=== PATIENT | female | born 1990 | race African-American/Black ===

== ENCOUNTER 2019-12-16 09:18 | Inpatient (IN) | payer OTHER ==
[~2019-12-16] VITALS: Ht 167.6 cm; Wt 58.5 kg
[~2019-12-16 09:18] MED LIST: CALC667C4 PO; CINA30 PO; ENAL20TA PO; NIFE30TA94 PO
[2019-12-16 10:11] LABS: BASOPHILS % 1.1 % (0.0-2.0); EOSINOPHILS % 0.2 % (0.0-5.0); HEMOGLOBIN. 10.6 g/dL (12.0-16.0); LYMPHOCYTES % 12.1 % (20.0-50.0); MEAN CORPUSCULAR HEMOGLOBIN 27.4 pg (28.0-32.0); MEAN CORPUSCULAR VOLUME 83.3 fL (81.0-99.0); MEAN PLATELET VOLUME 8.5 fl (7.4-10.4); MONOCYTES % 3.2 % (2.0-8.0); NEUTROPHILS % 83.4 % (40.0-76.0); PLATELET 86 x1000/uL (130-400); RED BLOOD CELL COUNT 3.85 mill/uL (4.2-5.4); RED CELL DISTRIBUTION WIDTH 17.9 % (11.6-14.6)
[2019-12-16 10:17] LABS: CHLORIDE 107 mEq/L (98-107)
[2019-12-16 10:18] LABS: INR 1.1; PROTHROMBIN TIME 11.6 sec (9.6-11.0)
[2019-12-16 10:24] LABS: HCG SCREEN NEGATIVE
[2019-12-16 10:28] LABS: B-HCG QUANTITATIVE < 1.0 mIU/mL (<3)
[2019-12-16] MEDS ORDERED: LACTULOSE 20G/30ML UDC PO ONE (11:15)
[2019-12-16] MEDS ORDERED: ALBUTEROL (0.083%) 2.5MG/3ML NEB HHN ONE (11:15)
[2019-12-16] MEDS ORDERED: SODIUM BICARBONATE 8.4% 1 MEQ/ML 50ML SYR IV ONE (11:15)
[2019-12-16] MEDS ORDERED: INSULIN REGULAR (HUMULIN R) 300UNITS/3ML IV ONE (11:15)
[2019-12-16] MEDS ORDERED: DEXTROSE 50% WATER 50ML SYRINGE IV ONE (11:15)
[2019-12-16 11:19] LABS: PLATELET ESTIMATE DECREASED
[2019-12-16] MEDS ORDERED: ALBUTEROL (0.083%) 2.5MG/3ML NEB ONE (11:26)
[2019-12-16] MEDS ORDERED: ALBUTEROL (0.5%) 2.5MG/0.5ML NEB HHN ONE (11:26)
[2019-12-16 11:58] LABS: CLARITY URINE TURBID (CLEAR); COLOR URINE YELLOW (YELLOW); KETONES URINE NEGATIVE (NEGATIVE); LEUKOCYTE ESTERASE URINE 3+ (NEGATIVE); NITRITE URINE NEGATIVE (NEGATIVE); OCCULT BLOOD URINE 3+ (NEGATIVE); PROTEIN URINE 2+ (NEGATIVE); SPECIFIC GRAVITY URINE 1.011 (1.005-1.030); UROBILINOGEN URINE 0.2 E.U./dL (0.2-1.0)
[2019-12-16] MEDS ORDERED: IPRATROPIUM/ALBUTEROL 0.5-3(2.5)MG/3ML NEB HHN PRN (12:15)
[2019-12-16] MEDS ORDERED: ACETAMINOPHEN 325MG TABLET PO PRN (12:15)
[2019-12-16] MEDS ORDERED: CLONIDINE 0.1MG TABLET PO PRN (12:15)
[2019-12-16] MEDS ORDERED: GUAIFENESIN 200MG/10ML SUGAR FREE UDC PO PRN (12:15)
[2019-12-16] MEDS ORDERED: MORPHINE SULFATE 2 MG/ML CPJ (NOT FOR IM USE) IV PRN (12:15)
[2019-12-16] MEDS ORDERED: SODIUM CHLORIDE 0.9% 500 ML IV ONE (12:26)
[2019-12-16 16:30] VITALS: BP 163/88
[2019-12-16 17:44] VITALS: BP 168/88
[2019-12-16] MEDS ORDERED: CEFTRIAXONE 1 G PREMIX 50 ML IV NR (18:00)
[2019-12-16] MEDS ORDERED: CALCIUM ACETATE 667MG CAPSULE PO SCH (18:00)
[2019-12-16] MEDS: CALCIUM ACETATE 667 MG TABLET PO SCH (18:53)
[2019-12-16] MEDS ORDERED: PNEUMOCOCCAL 23-VAL P-SAC VAC 0.5 ML IM ONE (19:30)
[2019-12-16 20:36] VITALS: BP 167/89
[2019-12-16] MEDS: LACTULOSE 20G/30ML UDC PO SCH (22:58)
[2019-12-17 00:44] VITALS: BP 136/78
[2019-12-17 04:00] VITALS: BP 126/64
[2019-12-17] MEDS: LACTULOSE 20G/30ML UDC PO SCH ×3 (05:44→22:48)
[2019-12-17 07:06] LABS: BASOPHILS % 0.9 % (0.0-2.0); EOSINOPHILS % 1.2 % (0.0-5.0); HEMATOCRIT. 25.5 % (36.0-48.0); HEMOGLOBIN. 8.5 g/dL (12.0-16.0); LYMPHOCYTES % 25.2 % (20.0-50.0); MEAN CORPUSCULAR HEMOGLOBIN 27.5 pg (28.0-32.0); MEAN CORPUSCULAR VOLUME 82.7 fL (81.0-99.0); MEAN PLATELET VOLUME 9.1 fl (7.4-10.4); MONOCYTES % 7.7 % (2.0-8.0); PLATELET 78 x1000/uL (130-400); RED BLOOD CELL COUNT 3.08 mill/uL (4.2-5.4)
[2019-12-17 07:17] LABS: CHLORIDE 107 mEq/L (98-107)
[2019-12-17 07:28] LABS: LDL CHOLESTEROL 85 mg/dL (5-100)
[2019-12-17 07:31] LABS: HDL CHOLESTEROL 64 mg/dL (40-59)
[2019-12-17 08:00] VITALS: BP 132/71
[2019-12-17] MEDS: CALCIUM ACETATE 667 MG TABLET PO SCH ×3 (08:44→17:50)
[2019-12-17] MEDS: ENALAPRIL 5MG TABLET PO SCH (08:46)
[2019-12-17] MEDS: NIFEDIPINE XL 60MG TAB PO SCH (08:46)
[2019-12-17] MEDS: CINACALCET HCL 30MG TABLET PO SCH (08:48)
[2019-12-17] MEDS: CEFTRIAXONE 1 G PREMIX 50 ML IV SCH (10:40)
[2019-12-17] MEDS: ONDANSETRON HCL 4MG/2ML INJ IV PRN ×2 (14:20→21:24)
[2019-12-17 16:00] VITALS: BP 126/67
[2019-12-17 16:59] LABS: PHOSPHORUS 7.1 mg/dL (2.5-4.9)
[2019-12-17 20:00] VITALS: BP 115/59
[2019-12-17] MEDS: DIPHENHYDRAMINE 50MG/ML VIAL IV PRN (21:24)
[2019-12-18] VITALS: BP 105/54
[2019-12-18 04:00] VITALS: BP 98/52
[2019-12-18] MEDS: LACTULOSE 20G/30ML UDC PO SCH ×2 (06:00→14:06)
[2019-12-18 08:20] LABS: BASOPHILS % 0.8 % (0.0-2.0); EOSINOPHILS % 1.3 % (0.0-5.0); HEMOGLOBIN. 9.4 g/dL (12.0-16.0); LYMPHOCYTES % 20.6 % (20.0-50.0); MEAN CORPUSCULAR HEMOGLOBIN 28.2 pg (28.0-32.0); MEAN PLATELET VOLUME 9.5 fl (7.4-10.4); MONOCYTES % 8.2 % (2.0-8.0); NEUTROPHILS % 69.1 % (40.0-76.0); PLATELET 109 x1000/uL (130-400); RED BLOOD CELL COUNT 3.33 mill/uL (4.2-5.4); RED CELL DISTRIBUTION WIDTH 17.9 % (11.6-14.6)
[2019-12-18 08:23] VITALS: BP 92/48
[2019-12-18] MEDS: NIFEDIPINE XL 60MG TAB PO SCH (09:00)
[2019-12-18] MEDS: ENALAPRIL 5MG TABLET PO SCH (09:00)
[2019-12-18] MEDS: CEFTRIAXONE 1 G PREMIX 50 ML IV SCH (09:55)
[2019-12-18] MEDS: CINACALCET HCL 30MG TABLET PO SCH (09:55)
[2019-12-18] MEDS: CALCIUM ACETATE 667 MG TABLET PO SCH ×2 (09:56→14:06)
[2019-12-18] MEDS ORDERED: PSYL575P22 MT (10:54)
[2019-12-18 12:35] VITALS: BP 97/51
[2019-12-18] MEDS: DIPHENHYDRAMINE 50MG/ML VIAL IV PRN (14:14)
[2019-12-18 15:56] VITALS: BP 112/58
[2019-12-18 17:05] VITALS: BP 112/58
== END 2019-12-18 17:45 | disposition home or self-care (01) | DRG 425 ==
LOC: ER 09:39 → 6WST 11:48 → EDBEDREQ 11:57 → EDBEDREQSVC 14:28 → ENRESERV 15:42
PROVIDERS: ADMIT Internal Medicine; ATTEND Internal Medicine
PROC: 5A1D70Z Performance of Urinary Filtration, Intermittent, Less than 6 Hours Per Day (ICD-10-PCS; principal; 2019-12-16)
PROC: 5A1D70Z Performance of Urinary Filtration, Intermittent, Less than 6 Hours Per Day (ICD-10-PCS; 2019-12-16)
DX: E87.5 Hyperkalemia (principal); D69.6 Thrombocytopenia, unspecified; I12.0 Hypertensive chronic kidney disease with stage 5 chronic kidney disease or end stage renal disease; N18.6 End stage renal disease; E83.39 Other disorders of phosphorus metabolism; E83.51 Hypocalcemia; M32.14 Glomerular disease in systemic lupus erythematosus; K72.90 Hepatic failure, unspecified without coma; R18.8 Other ascites; K74.60 Unspecified cirrhosis of liver; N39.0 Urinary tract infection, site not specified; R00.0 Tachycardia, unspecified; Z99.2 Dependence on renal dialysis; Z79.899 Other long term (current) drug therapy; Z68.20 Body mass index [BMI] 20.0-20.9, adult
CPT/HCPCS: 36415; 80048; 80053; 80061; 80076; 81003; 82140; 82248; 82962; 84100; 84443; 84702; 84703; 85025; 87077; 87186; 90732; 93970; 94640; 96372; 96375; 99291; J0696; J1200; J1815; J2270; J2405; J3490; J7030; J7611; J7620

== ENCOUNTER 2020-02-10 09:27 | Emergency (ER) | payer MEDICAID ==
[~2020-02-10] VITALS: Ht 165.1 cm; Wt 52.4 kg
[~2020-02-10 09:27] MED LIST changes: +FERR325T6 MT; +KEPP500 MT; +LACT10SO7 MT; +PSYL575P22 MT
[2020-02-10 10:46] LABS: BASOPHILS % 1.2 % (0.0-2.0); EOSINOPHILS % 2.2 % (0.0-5.0); HEMATOCRIT. 29.6 % (36.0-48.0); HEMOGLOBIN. 9.5 g/dL (12.0-16.0); LYMPHOCYTES % 29.6 % (20.0-50.0); MEAN CORPUSCULAR HEMOGLOBIN 28.2 pg (28.0-32.0); MEAN CORPUSCULAR VOLUME 87.5 fL (81.0-99.0); MEAN PLATELET VOLUME 9.2 fl (7.4-10.4); MONOCYTES % 8.5 % (2.0-8.0); NEUTROPHILS % 58.5 % (40.0-76.0); PLATELET 99 x1000/uL (130-400); RED BLOOD CELL COUNT 3.39 mill/uL (4.2-5.4); RED CELL DISTRIBUTION WIDTH 18.4 % (11.6-14.6)
[2020-02-10 10:48] LABS: INR 1.1; PARTIAL THROMBOPLASTIN TIME 28.5 sec (23.4-31.0)
[2020-02-10 10:54] LABS: HCG SCREEN NEGATIVE
[2020-02-10] MEDS ORDERED: MORPHINE SULFATE 4 MG/ML CPJ (NOT FOR IM USE) IV ONE (12:15)
[2020-02-10] MEDS ORDERED: ONDANSETRON HCL 4MG/2ML INJ IV ONE (12:15)
[2020-02-10 13:45] VITALS: BP 110/60
== END 2020-02-10 13:45 | disposition home or self-care (01) ==
LOC: ER 09:27
DX: R18.8 Other ascites (principal); R06.00 Dyspnea, unspecified; N18.6 End stage renal disease; F12.10 Cannabis abuse, uncomplicated; M32.9 Systemic lupus erythematosus, unspecified; K76.9 Liver disease, unspecified; K21.9 Gastro-esophageal reflux disease without esophagitis; Z99.2 Dependence on renal dialysis
CPT/HCPCS: 36415; 76705; 84703; 85025; 85610; 85730; 96374; 96375; 99284; J2270; J2405

== ENCOUNTER 2020-03-19 18:57 | Emergency (ER) | payer MEDICAID ==
[~2020-03-19] VITALS: Ht 162.6 cm; Wt 56.0 kg
[2020-03-19] MEDS ORDERED: ONDANSETRON HCL 4MG/2ML INJ IV STA (19:48)
[2020-03-19] MEDS ORDERED: MORPHINE SULFATE 4 MG/ML CPJ (NOT FOR IM USE) IV STA (19:48)
[2020-03-19 20:26] LABS: BASOPHILS % 1.1 % (0.0-2.0); EOSINOPHILS % 4.5 % (0.0-5.0); HEMATOCRIT. 31.1 % (36.0-48.0); HEMOGLOBIN. 10.3 g/dL (12.0-16.0); LYMPHOCYTES % 28.6 % (20.0-50.0); MEAN CORPUSCULAR HEMOGLOBIN 28.7 pg (28.0-32.0); MEAN CORPUSCULAR VOLUME 86.8 fL (81.0-99.0); MONOCYTES % 7.8 % (2.0-8.0); RED BLOOD CELL COUNT 3.58 mill/uL (4.2-5.4); RED CELL DISTRIBUTION WIDTH 19.4 % (11.6-14.6)
[2020-03-19 20:30] LABS: CHLORIDE 100 mEq/L (98-107)
[2020-03-19 20:32] LABS: INR 1.1; PROTHROMBIN TIME 11.9 sec (9.6-11.0)
[2020-03-19 20:38] LABS: HCG SCREEN NEGATIVE
[2020-03-19 21:09] LABS: MEAN PLATELET VOLUME 9.2 fl (7.4-10.4); PLATELET 93 x1000/uL (130-400); PLATELET ESTIMATE DECREASED
[2020-03-19] MEDS ORDERED: HYDROCODONE/ACETAMINOPHEN 5/325MG TABLET PO NR (23:15)
[2020-03-19 23:51] VITALS: BP 135/79
== END 2020-03-19 23:54 | disposition home or self-care (01) ==
LOC: ER 18:57
DX: K85.90 Acute pancreatitis without necrosis or infection, unspecified (principal); R51 Headache; Z99.2 Dependence on renal dialysis; K21.9 Gastro-esophageal reflux disease without esophagitis; Z98.890 Other specified postprocedural states; Z79.899 Other long term (current) drug therapy
CPT/HCPCS: 36415; 71045; 80053; 83690; 83880; 84484; 84703; 85025; 85610; 93005; 96374; 96375; 99285; J2270; J2405

== ENCOUNTER 2020-04-03 08:13 | Inpatient (IN) | payer MEDICAID ==
[~2020-04-03] VITALS: Ht 165.1 cm; Wt 59.0 kg
[2020-04-03] MEDS ORDERED: MORPHINE SULFATE 4 MG/ML CPJ (NOT FOR IM USE) IV STA (08:46)
[2020-04-03 09:11] LABS: CHLORIDE 104 mEq/L (98-107)
[2020-04-03] MEDS ORDERED: ONDANSETRON HCL 4MG TABLET PO ONE (09:15)
[2020-04-03 09:29] LABS: HCG SCREEN NEGATIVE
[2020-04-03 10:23] LABS: INR 1.1
[2020-04-03 10:41] LABS: BASOPHILS % 0.6 % (0.0-2.0); EOSINOPHILS % 2.7 % (0.0-5.0); HEMATOCRIT. 30.2 % (36.0-48.0); HEMOGLOBIN. 10.1 g/dL (12.0-16.0); LYMPHOCYTES % 30.1 % (20.0-50.0); MEAN CORPUSCULAR HEMOGLOBIN 28.4 pg (28.0-32.0); MEAN CORPUSCULAR VOLUME 84.9 fL (81.0-99.0); MEAN PLATELET VOLUME 8.6 fl (7.4-10.4); MONOCYTES % 7.7 % (2.0-8.0); NEUTROPHILS % 58.9 % (40.0-76.0); PLATELET 54 x1000/uL (130-400); RED BLOOD CELL COUNT 3.56 mill/uL (4.2-5.4); RED CELL DISTRIBUTION WIDTH 18.5 % (11.6-14.6)
[2020-04-03] MEDS ORDERED: ALBUTEROL (0.083%) 2.5MG/3ML NEB HHN SCH (10:49)
[2020-04-03] MEDS ORDERED: ALBUTEROL (0.083%) 2.5MG/3ML NEB HHN ONE (11:15)
[2020-04-03] MEDS ORDERED: INSULIN REGULAR (HUMULIN R) 300UNITS/3ML IV ONE (11:15)
[2020-04-03] MEDS ORDERED: DEXTROSE 50% WATER 50ML SYRINGE IV ONE (11:15)
[2020-04-03] MEDS ORDERED: SODIUM BICARBONATE 8.4% 1 MEQ/ML 50ML SYR IV ONE (11:15)
[2020-04-03] MEDS ORDERED: ACETAMINOPHEN 325MG TABLET PO PRN (13:00)
[2020-04-03] MEDS: ONDANSETRON HCL 4MG/2ML INJ IV PRN ×2 (15:24→17:51)
[2020-04-03] MEDS: MORPHINE SULFATE 2 MG/ML CPJ (NOT FOR IM USE) IV PRN (17:51)
[2020-04-03] MEDS: LEVETIRACETAM 500MG TABLET PO SCH (21:13)
[2020-04-03 22:00] VITALS: BP 141/73
[2020-04-03] MEDS ORDERED: IOHEXOL-300 100 ML BOTTLE ONE (23:17)
[2020-04-04] MEDS: MORPHINE SULFATE 2 MG/ML CPJ (NOT FOR IM USE) IV PRN (02:07)
[2020-04-04] MEDS: ONDANSETRON HCL 4MG/2ML INJ IV PRN ×3 (02:21→17:55)
[2020-04-04] MEDS ORDERED: DIPH25CA83 PO (04:17)
[2020-04-04 06:54] LABS: BASOPHILS % 0.5 % (0.0-2.0); EOSINOPHILS % 3.2 % (0.0-5.0); HEMATOCRIT. 31.8 % (36.0-48.0); HEMOGLOBIN. 10.5 g/dL (12.0-16.0); LYMPHOCYTES % 28.6 % (20.0-50.0); MEAN CORPUSCULAR HEMOGLOBIN 28.6 pg (28.0-32.0); MEAN CORPUSCULAR VOLUME 86.8 fL (81.0-99.0); MONOCYTES % 6.7 % (2.0-8.0); RED BLOOD CELL COUNT 3.66 mill/uL (4.2-5.4)
[2020-04-04 08:00] VITALS: BP 128/63
[2020-04-04] MEDS: LEVETIRACETAM 500MG TABLET PO SCH ×2 (08:18→21:01)
[2020-04-04 08:30] VITALS: BP 128/63
[2020-04-04] MEDS: OMEPRAZOLE 20MG CAPSULE EXTENDED RELEASE PO SCH (08:39)
[2020-04-04 08:55] LABS: PLATELET 64 x1000/uL (130-400)
[2020-04-04] MEDS ORDERED: LORAZEPAM 2MG/ML CPJ IV PRN (09:15)
[2020-04-04] MEDS ORDERED: LEVOFLOXACIN 500MG PREMIX 100 ML IV SCH ×2 (10:45→12:00)
[2020-04-04 12:00] VITALS: BP 128/65
[2020-04-04 16:00] VITALS: BP 153/85
[2020-04-04 17:33] VITALS: BP 133/87
[2020-04-04 20:00] VITALS: BP 116/59
[2020-04-04] MEDS: BLOOD SUGAR DIAGNOSTIC STRIP TEST SCH (20:47)
[2020-04-05] VITALS: BP 126/59
[2020-04-05] MEDS: ONDANSETRON HCL 4MG/2ML INJ IV PRN ×2 (00:38→12:28)
[2020-04-05 04:00] VITALS: BP 114/59
[2020-04-05] MEDS: BLOOD SUGAR DIAGNOSTIC STRIP TEST SCH ×3 (06:36→16:45)
[2020-04-05] MEDS: OMEPRAZOLE 20MG CAPSULE EXTENDED RELEASE PO SCH (06:36)
[2020-04-05 06:50] LABS: HEMATOCRIT. 29.8 % (36.0-48.0); HEMOGLOBIN. 10.1 g/dL (12.0-16.0); MEAN CORPUSCULAR HEMOGLOBIN 28.6 pg (28.0-32.0); MEAN CORPUSCULAR VOLUME 84.4 fL (81.0-99.0); MEAN PLATELET VOLUME 8.5 fl (7.4-10.4); PLATELET 59 x1000/uL (130-400); RED BLOOD CELL COUNT 3.53 mill/uL (4.2-5.4); RED CELL DISTRIBUTION WIDTH 18.2 % (11.6-14.6)
[2020-04-05 08:00] VITALS: BP 126/70
[2020-04-05 09:37] LABS: PLATELET ESTIMATE DECREASED
[2020-04-05] MEDS: LEVETIRACETAM 500MG TABLET PO SCH (09:41)
[2020-04-05 12:00] VITALS: BP 130/66
[2020-04-05] MEDS ORDERED: OMEP20CA14 PO (12:10)
[2020-04-05] MEDS ORDERED: KEPP500 MT (12:10)
[2020-04-05] MEDS ORDERED: LACT10SO7 MT (12:10)
[2020-04-05] MEDS ORDERED: LEVO500T2 MT (12:10)
[2020-04-05] MEDS ORDERED: FERR325T6 MT (12:10)
[2020-04-05] MEDS ORDERED: LACTULOSE 20G/30ML UDC PO SCH (14:00)
[2020-04-05 15:08] VITALS: BP 130/66
[2020-04-05 16:00] VITALS: BP 135/76
[2020-04-06] MEDS ORDERED: LEVOFLOXACIN 250MG PREMIX 50 ML IV SCH (11:00)
== END 2020-04-05 16:57 | disposition home or self-care (01) | DRG 243 ==
LOC: ER 08:13 → 5WST 11:41 → ENRESERV 20:21
PROVIDERS: ADMIT Internal Medicine; ATTEND Internal Medicine
PROC: 5A1D70Z Performance of Urinary Filtration, Intermittent, Less than 6 Hours Per Day (ICD-10-PCS; principal; 2020-04-03)
PROC: 5A1D70Z Performance of Urinary Filtration, Intermittent, Less than 6 Hours Per Day (ICD-10-PCS; 2020-04-04)
PROC: 5A1D70Z Performance of Urinary Filtration, Intermittent, Less than 6 Hours Per Day (ICD-10-PCS; 2020-04-05)
DX: K21.9 Gastro-esophageal reflux disease without esophagitis (principal); E43 Unspecified severe protein-calorie malnutrition; I12.0 Hypertensive chronic kidney disease with stage 5 chronic kidney disease or end stage renal disease; E87.5 Hyperkalemia; R18.8 Other ascites; N18.6 End stage renal disease; K86.1 Other chronic pancreatitis; E87.1 Hypo-osmolality and hyponatremia; K74.60 Unspecified cirrhosis of liver; Z94.0 Kidney transplant status; D63.8 Anemia in other chronic diseases classified elsewhere; E16.2 Hypoglycemia, unspecified; G40.909 Epilepsy, unspecified, not intractable, without status epilepticus; R19.7 Diarrhea, unspecified; E21.3 Hyperparathyroidism, unspecified; Z99.2 Dependence on renal dialysis; Z79.899 Other long term (current) drug therapy; Z68.21 Body mass index [BMI] 21.0-21.9, adult
CPT/HCPCS: 36415; 74177; 76705; 80048; 80053; 82140; 82542; 82962; 84145; 84703; 85025; 95816; 99291; J1815; J1956; J2060; J2270; J2405; J3490; Q0162; Q9967

== ENCOUNTER 2020-04-29 17:16 | Inpatient (IN) | payer MEDICAID ==
[~2020-04-29] VITALS: Ht 165.1 cm; Wt 59.0 kg
[~2020-04-29 17:16] MED LIST changes: +DIPH25CA83 PO; -ENAL20TA PO; +LEVO500T2 MT; -NIFE30TA94 PO; +OMEP20CA14 PO; -PSYL575P22 MT
[2020-04-29 18:56] LABS: CHLORIDE 103 mEq/L (98-107)
[2020-04-29 19:07] LABS: HEMATOCRIT. 27.4 % (36.0-48.0); HEMOGLOBIN. 9.3 g/dL (12.0-16.0); MEAN CORPUSCULAR HEMOGLOBIN 28.7 pg (28.0-32.0); MEAN CORPUSCULAR VOLUME 85.2 fL (81.0-99.0); MEAN PLATELET VOLUME 9.1 fl (7.4-10.4); PLATELET 58 x1000/uL (130-400); RED BLOOD CELL COUNT 3.22 mill/uL (4.2-5.4); RED CELL DISTRIBUTION WIDTH 17.3 % (11.6-14.6)
[2020-04-29] MEDS ORDERED: MORPHINE SULFATE 2 MG/ML CPJ (NOT FOR IM USE) IV ONE (19:30)
[2020-04-29 20:47] LABS: PLATELET ESTIMATE MARKEDLY DECREASED
[2020-04-30 00:25] VITALS: BP 146/81
[2020-04-30 01:00] VITALS: BP 146/81
[2020-04-30] MEDS ORDERED: DIPHENHYDRAMINE 50MG/ML VIAL IV PRN (01:45)
[2020-04-30] MEDS: MORPHINE SULFATE 2 MG/ML CPJ (NOT FOR IM USE) IV PRN ×3 (04:12→18:41)
[2020-04-30] MEDS: OMEPRAZOLE 20MG CAPSULE EXTENDED RELEASE PO SCH (07:21)
[2020-04-30 07:34] LABS: HEMATOCRIT. 25.1 % (36.0-48.0); HEMOGLOBIN. 8.5 g/dL (12.0-16.0); MEAN CORPUSCULAR HEMOGLOBIN 29.1 pg (28.0-32.0); MEAN CORPUSCULAR VOLUME 86.1 fL (81.0-99.0); MEAN PLATELET VOLUME 9.1 fl (7.4-10.4); PLATELET 55 x1000/uL (130-400); RED BLOOD CELL COUNT 2.92 mill/uL (4.2-5.4); RED CELL DISTRIBUTION WIDTH 17.7 % (11.6-14.6)
[2020-04-30 08:00] VITALS: BP 147/80
[2020-04-30] MEDS: LEVETIRACETAM 500MG TABLET PO SCH ×2 (08:46→20:32)
[2020-04-30] MEDS: FERROUS SULFATE 325MG TABLET PO SCH ×2 (08:46→17:33)
[2020-04-30] MEDS: METOPROLOL TARTRATE 25MG TABLET PO SCH ×2 (08:46→20:32)
[2020-04-30] MEDS: CALCIUM ACETATE 667MG CAPSULE PO SCH ×3 (08:47→17:33)
[2020-04-30] MEDS: LACTULOSE 20G/30ML UDC PO SCH (08:47)
[2020-04-30 10:44] LABS: PLATELET ESTIMATE MARKEDLY DECREASED
[2020-04-30 12:00] VITALS: BP 119/72
[2020-04-30] MEDS: ONDANSETRON HCL 4MG/2ML INJ IV PRN ×2 (12:58→18:41)
[2020-04-30 16:00] VITALS: BP 124/76
[2020-04-30 20:00] VITALS: BP 139/56
[2020-05-01] VITALS (8 sets, daily range): BP systolic 100–134; BP diastolic 58–78
[2020-05-01] MEDS: ONDANSETRON HCL 4MG/2ML INJ IV PRN (02:36)
[2020-05-01] MEDS: MORPHINE SULFATE 2 MG/ML CPJ (NOT FOR IM USE) IV PRN ×2 (02:36→11:52)
[2020-05-01 06:11] LABS: HEMATOCRIT. 24.8 % (36.0-48.0); HEMOGLOBIN. 8.4 g/dL (12.0-16.0); MEAN CORPUSCULAR HEMOGLOBIN 28.7 pg (28.0-32.0); MEAN CORPUSCULAR VOLUME 84.6 fL (81.0-99.0); MEAN PLATELET VOLUME 9.1 fl (7.4-10.4); RED BLOOD CELL COUNT 2.93 mill/uL (4.2-5.4); RED CELL DISTRIBUTION WIDTH 17.3 % (11.6-14.6)
[2020-05-01 06:15] LABS: INR 1.1; PARTIAL THROMBOPLASTIN TIME 34.5 sec (23.4-31.0); PROTHROMBIN TIME 12.3 sec (9.6-11.0)
[2020-05-01 06:44] LABS: PLATELET 46 x1000/uL (130-400)
[2020-05-01] MEDS: OMEPRAZOLE 20MG CAPSULE EXTENDED RELEASE PO SCH (06:47)
[2020-05-01] MEDS: LACTULOSE 20G/30ML UDC PO SCH (08:39)
[2020-05-01] MEDS: FERROUS SULFATE 325MG TABLET PO SCH ×2 (08:39→17:07)
[2020-05-01] MEDS: LEVETIRACETAM 500MG TABLET PO SCH ×2 (08:39→21:00)
[2020-05-01] MEDS: CALCIUM ACETATE 667MG CAPSULE PO SCH ×3 (08:50→17:07)
[2020-05-01] MEDS: METOPROLOL TARTRATE 25MG TABLET PO SCH ×2 (09:00→21:00)
[2020-05-01] MEDS ORDERED: SODIUM POLYSTYRENE SULFONATE 15 G/60 ML BOT PO NR (10:15)
[2020-05-01 12:02] LABS: PLATELET ESTIMATE MARKEDLY DECREASED
[2020-05-01] MEDS ORDERED: LACT10SO7 MT (14:21)
[2020-05-01] MEDS ORDERED: ACETAMINOPHEN 650MG/20.3ML UDC PO PRN (20:45)
[2020-05-01] MEDS ORDERED: VANCOMYCIN 1250MG in DEXTROSE 5% WATER 250ML IV NR (22:00)
[2020-05-01 22:08] LABS: HEMATOCRIT. 26.4 % (36.0-48.0); HEMOGLOBIN. 8.9 g/dL (12.0-16.0); MEAN CORPUSCULAR HEMOGLOBIN 28.7 pg (28.0-32.0); MEAN CORPUSCULAR VOLUME 84.8 fL (81.0-99.0); MEAN PLATELET VOLUME 9.8 fl (7.4-10.4); PLATELET 69 x1000/uL (130-400); RED BLOOD CELL COUNT 3.11 mill/uL (4.2-5.4); RED CELL DISTRIBUTION WIDTH 17.1 % (11.6-14.6)
[2020-05-01 23:07] LABS: PLATELET ESTIMATE DECREASED
[2020-05-02] VITALS: BP 118/77
[2020-05-02 00:15] VITALS: BP 107/71
[2020-05-02] MEDS: MORPHINE SULFATE 2 MG/ML CPJ (NOT FOR IM USE) IV PRN ×3 (00:46→22:12)
[2020-05-02 04:00] VITALS: BP 124/75
[2020-05-02] MEDS: OMEPRAZOLE 20MG CAPSULE EXTENDED RELEASE PO SCH (06:35)
[2020-05-02 07:50] VITALS: BP 98/51
[2020-05-02 07:54] LABS: HEMATOCRIT. 25.8 % (36.0-48.0); HEMOGLOBIN. 8.6 g/dL (12.0-16.0); MEAN CORPUSCULAR HEMOGLOBIN 28.4 pg (28.0-32.0); MEAN CORPUSCULAR VOLUME 84.8 fL (81.0-99.0); RED BLOOD CELL COUNT 3.05 mill/uL (4.2-5.4); RED CELL DISTRIBUTION WIDTH 17.1 % (11.6-14.6)
[2020-05-02] MEDS: LEVETIRACETAM 500MG TABLET PO SCH ×2 (08:05→20:25)
[2020-05-02] MEDS: CALCIUM ACETATE 667MG CAPSULE PO SCH ×3 (08:05→17:28)
[2020-05-02] MEDS: FERROUS SULFATE 325MG TABLET PO SCH ×2 (08:06→17:27)
[2020-05-02] MEDS: LACTULOSE 20G/30ML UDC PO SCH (08:06)
[2020-05-02] MEDS: METOPROLOL TARTRATE 25MG TABLET PO SCH ×2 (08:06→20:25)
[2020-05-02 10:10] LABS: PLATELET 56 x1000/uL (130-400)
[2020-05-02 10:18] LABS: PLATELET ESTIMATE DECREASED
[2020-05-02 12:00] VITALS: BP 128/74
[2020-05-02] MEDS ORDERED: SODIUM BICARBONATE 4% (2.4MEQ) 5ML VIAL IV ONE (12:45)
[2020-05-02] MEDS ORDERED: LIDOCAINE HCL 1% 20ML VIAL (Pyxis) INJ ONE (12:45)
[2020-05-02] MEDS ORDERED: PIPERACILLIN/TAZOBACTAM 3.375 G/VIAL IV SCH (14:00)
[2020-05-02] MEDS ORDERED: PIPERACILLIN/TAZOBACTAM 2.25 G in DEXTROSE 5% WATER 50 ML IV SCH (15:00)
[2020-05-02] MEDS: CEFEPIME 1,000 MG in DEXTROSE 5% WATER 50 ML IV SCH (17:25)
[2020-05-02 20:00] VITALS: BP 124/76
[2020-05-03] VITALS: BP 121/75
[2020-05-03 04:20] VITALS: BP 122/66
[2020-05-03] MEDS: MORPHINE SULFATE 2 MG/ML CPJ (NOT FOR IM USE) IV PRN (05:10)
[2020-05-03] MEDS: OMEPRAZOLE 20MG CAPSULE EXTENDED RELEASE PO SCH (06:25)
[2020-05-03 07:18] LABS: HEMATOCRIT. 25.1 % (36.0-48.0); HEMOGLOBIN. 8.5 g/dL (12.0-16.0); MEAN CORPUSCULAR HEMOGLOBIN 28.5 pg (28.0-32.0); MEAN CORPUSCULAR VOLUME 84.5 fL (81.0-99.0); RED BLOOD CELL COUNT 2.97 mill/uL (4.2-5.4); RED CELL DISTRIBUTION WIDTH 16.6 % (11.6-14.6)
[2020-05-03 08:00] VITALS: BP 118/74
[2020-05-03 09:57] LABS: PLATELET 58 x1000/uL (130-400)
[2020-05-03 10:06] LABS: PLATELET ESTIMATE MARKEDLY DECREASED
[2020-05-03] MEDS: METOPROLOL TARTRATE 25MG TABLET PO SCH (10:21)
[2020-05-03] MEDS: FERROUS SULFATE 325MG TABLET PO SCH (11:56)
[2020-05-03] MEDS: CALCIUM ACETATE 667MG CAPSULE PO SCH ×2 (11:56→13:32)
[2020-05-03] MEDS: LEVETIRACETAM 500MG TABLET PO SCH (11:57)
[2020-05-03] MEDS: LACTULOSE 20G/30ML UDC PO SCH (11:57)
[2020-05-03] MEDS: ONDANSETRON HCL 4MG/2ML INJ IV PRN (11:59)
[2020-05-03 12:00] VITALS: BP 121/67
[2020-05-03] MEDS: CEFEPIME 1,000 MG in DEXTROSE 5% WATER 50 ML IV SCH (16:00)
[2020-05-03 17:18] VITALS: BP 138/58
[2020-05-05] MEDS ORDERED: ERGOCALCIFEROL 50000UNITS CAPSULE PO SCH (18:00)
== END 2020-05-03 19:05 | disposition home or self-care (01) | DRG 720 ==
LOC: ER 17:16 → 6WST 21:51 → MICUSO 21:51 → UNDOADMIN 21:51
PROVIDERS: ADMIT Internal Medicine; ATTEND Internal Medicine
PROC: 5A1D70Z Performance of Urinary Filtration, Intermittent, Less than 6 Hours Per Day (ICD-10-PCS; 2020-04-30)
PROC: 5A1D70Z Performance of Urinary Filtration, Intermittent, Less than 6 Hours Per Day (ICD-10-PCS; 2020-05-01)
PROC: 30233R1 Transfusion of Nonautologous Platelets into Peripheral Vein, Percutaneous Approach (ICD-10-PCS; 2020-05-01)
PROC: 0W9G3ZZ Drainage of Peritoneal Cavity, Percutaneous Approach (ICD-10-PCS; principal; 2020-05-02)
PROC: 5A1D70Z Performance of Urinary Filtration, Intermittent, Less than 6 Hours Per Day (ICD-10-PCS; 2020-05-03)
DX: A41.9 Sepsis, unspecified organism (principal); E43 Unspecified severe protein-calorie malnutrition; D61.818 Other pancytopenia; E87.2 Acidosis; M32.9 Systemic lupus erythematosus, unspecified; I12.0 Hypertensive chronic kidney disease with stage 5 chronic kidney disease or end stage renal disease; E87.5 Hyperkalemia; R18.8 Other ascites; K74.60 Unspecified cirrhosis of liver; N18.6 End stage renal disease; G40.909 Epilepsy, unspecified, not intractable, without status epilepticus; Z99.2 Dependence on renal dialysis; Z68.26 Body mass index [BMI] 26.0-26.9, adult; Z79.2 Long term (current) use of antibiotics; Z79.899 Other long term (current) drug therapy
CPT/HCPCS: 36415; 49083; 71045; 76700; 80048; 80053; 80202; 84145; 84484; 85025; 86850; 86900; 93005; 96374; 99285; J0692; J2270; J2405; J2543; J3370; J3490; J7060; P9034

== ENCOUNTER 2020-06-05 04:53 | Inpatient (IN) | payer MEDICAID, OTHER ==
[~2020-06-05] VITALS: Ht 162.6 cm; Wt 59.0 kg
[~2020-06-05 04:53] MED LIST changes: -CINA30 PO; -LEVO500T2 MT
[2020-06-05 06:15] LABS: CHLORIDE 100 mEq/L (98-107)
[2020-06-05] MEDS ORDERED: MORPHINE SULFATE 4 MG/ML CPJ (NOT FOR IM USE) IV ONE (06:15)
[2020-06-05 06:17] LABS: HEMATOCRIT. 27.3 % (36.0-48.0); HEMOGLOBIN. 9.3 g/dL (12.0-16.0); MEAN CORPUSCULAR HEMOGLOBIN 28.8 pg (28.0-32.0); MEAN CORPUSCULAR VOLUME 84.4 fL (81.0-99.0); MEAN PLATELET VOLUME 9.1 fl (7.4-10.4); PLATELET 72 x1000/uL (130-400); RED BLOOD CELL COUNT 3.24 mill/uL (4.2-5.4); RED CELL DISTRIBUTION WIDTH 18.8 % (11.6-14.6)
[2020-06-05 06:19] LABS: ETHANOL BLOOD < 10 mg/dL
[2020-06-05] MEDS ORDERED: ONDANSETRON HCL 4MG/2ML INJ ONE (06:56)
[2020-06-05] MEDS ORDERED: ONDANSETRON HCL 4MG/2ML INJ IV ONE (07:00)
[2020-06-05 07:08] LABS: PLATELET ESTIMATE DECREASED
[2020-06-05] MEDS: MORPHINE SULFATE 2 MG/ML CPJ (NOT FOR IM USE) IV PRN ×2 (12:21→22:20)
[2020-06-05] MEDS ORDERED: ACETAMINOPHEN 325MG TABLET PO PRN (12:45)
[2020-06-05] MEDS ORDERED: CEFEPIME 1,000 MG in DEXTROSE 5% WATER 50 ML IV SCH (14:00)
[2020-06-05] MEDS: METHYLPREDNISOLONE SOD SUCC 40 MG/ML VIAL IV SCH ×2 (14:39→22:19)
[2020-06-05] MEDS: LACTULOSE 20G/30ML UDC PO SCH (22:19)
[2020-06-05 23:03] VITALS: BP 129/67
[2020-06-05] MEDS ORDERED: LACT10SO7 MT (23:55)
[2020-06-05] MEDS ORDERED: VITAMIN D PO (23:57)
[2020-06-06 00:07] VITALS: BP 117/61
[2020-06-06 04:00] VITALS: BP 108/57
[2020-06-06] MEDS: METHYLPREDNISOLONE SOD SUCC 40 MG/ML VIAL IV SCH ×3 (06:04→22:08)
[2020-06-06 06:46] LABS: HEMATOCRIT. 28.1 % (36.0-48.0); HEMOGLOBIN. 9.5 g/dL (12.0-16.0); MEAN CORPUSCULAR HEMOGLOBIN 28.9 pg (28.0-32.0); MEAN CORPUSCULAR VOLUME 85.2 fL (81.0-99.0); RED CELL DISTRIBUTION WIDTH 18.4 % (11.6-14.6)
[2020-06-06 08:00] VITALS: BP 127/64
[2020-06-06] MEDS: LACTULOSE 20G/30ML UDC PO SCH ×3 (09:00→17:28)
[2020-06-06] MEDS ORDERED: LACTULOSE 20G/30ML UDC PO SCH (09:00)
[2020-06-06] MEDS: MORPHINE SULFATE 2 MG/ML CPJ (NOT FOR IM USE) IV PRN ×2 (11:39→22:21)
[2020-06-06 12:12] VITALS: BP 107/45
[2020-06-06 14:08] LABS: MEAN PLATELET VOLUME 8.9 fl (7.4-10.4); PLATELET 62 x1000/uL (130-400); PLATELET ESTIMATE DECREASED
[2020-06-06] MEDS ORDERED: LACT10SO7 MT (14:24)
[2020-06-06] MEDS ORDERED: HYDROCODONE/ACETAMINOPHEN 5/325MG TABLET PO PRN (14:30)
[2020-06-06] MEDS: CEFEPIME 1,000 MG in DEXTROSE 5% WATER 50 ML IV SCH (14:35)
[2020-06-06 16:09] VITALS: BP 119/53
[2020-06-06] MEDS: ONDANSETRON HCL 4MG/2ML INJ IV PRN ×2 (16:24→22:19)
[2020-06-06 20:54] VITALS: BP 122/75
[2020-06-06] MEDS: LEVETIRACETAM 500MG TABLET PO SCH (22:08)
[2020-06-07 00:36] VITALS: BP 113/63
[2020-06-07 04:00] VITALS: BP 108/63
[2020-06-07] MEDS: METHYLPREDNISOLONE SOD SUCC 40 MG/ML VIAL IV SCH ×2 (05:56→14:18)
[2020-06-07 06:50] LABS: HEMATOCRIT. 27.6 % (36.0-48.0); HEMOGLOBIN. 9.4 g/dL (12.0-16.0); MEAN CORPUSCULAR HEMOGLOBIN 28.6 pg (28.0-32.0); MEAN CORPUSCULAR VOLUME 83.9 fL (81.0-99.0); RED BLOOD CELL COUNT 3.29 mill/uL (4.2-5.4); RED CELL DISTRIBUTION WIDTH 18.4 % (11.6-14.6)
[2020-06-07 08:09] VITALS: BP 113/64
[2020-06-07] MEDS: LEVETIRACETAM 500MG TABLET PO SCH (08:30)
[2020-06-07] MEDS: LACTULOSE 20G/30ML UDC PO SCH ×5 (08:30→17:13)
[2020-06-07] MEDS: ONDANSETRON HCL 4MG/2ML INJ IV PRN (09:12)
[2020-06-07] MEDS: MORPHINE SULFATE 2 MG/ML CPJ (NOT FOR IM USE) IV PRN (09:13)
[2020-06-07 10:30] LABS: PLATELET 68 x1000/uL (130-400)
[2020-06-07 10:33] LABS: PLATELET ESTIMATE DECREASED
[2020-06-07] MEDS ORDERED: P20 MT (13:02)
[2020-06-07] MEDS ORDERED: LACT10SO MT (13:02)
[2020-06-07] MEDS: CEFEPIME 1,000 MG in DEXTROSE 5% WATER 50 ML IV SCH ×2 (14:00→14:10)
[2020-06-07 15:21] VITALS: BP 103/62
[2020-06-07 15:54] VITALS: BP 112/65
== END 2020-06-07 17:45 | disposition home or self-care (01) | DRG 346 ==
LOC: ER 04:53 → 6WST 08:57 → ENRESERV 20:48
PROVIDERS: ADMIT Internal Medicine; ATTEND Internal Medicine
DX: M32.9 Systemic lupus erythematosus, unspecified (principal); E43 Unspecified severe protein-calorie malnutrition; K85.90 Acute pancreatitis without necrosis or infection, unspecified; D69.6 Thrombocytopenia, unspecified; I13.11 Hypertensive heart and chronic kidney disease without heart failure, with stage 5 chronic kidney disease, or end stage renal disease; I27.20 Pulmonary hypertension, unspecified; K72.90 Hepatic failure, unspecified without coma; K74.60 Unspecified cirrhosis of liver; N18.6 End stage renal disease; D64.9 Anemia, unspecified; Z99.2 Dependence on renal dialysis; Z68.22 Body mass index [BMI] 22.0-22.9, adult
CPT/HCPCS: 36415; 71045; 80048; 80053; 80320; 82140; 83605; 83880; 84145; 84484; 85025; 93005; 96374; 99285; J0692; J2270; J2405; J2920; J7060; G0480

== ENCOUNTER 2020-07-19 07:49 | Inpatient (IN) | payer MEDICAID, OTHER ==
[~2020-07-19] VITALS: Ht 162.6 cm; Wt 59.9 kg
[~2020-07-19 07:49] MED LIST changes: +LACT10SO MT; +P20 MT; +VITAMIN D PO
[2020-07-19] MEDS ORDERED: KETOROLAC 30MG/ML VIAL IV STA (08:43)
[2020-07-19 09:09] LABS: BASOPHILS % 2.9 % (0.0-2.0); EOSINOPHILS % 1.4 % (0.0-5.0); HEMOGLOBIN. 9.9 g/dL (12.0-16.0); LYMPHOCYTES % 24.2 % (20.0-50.0); MEAN CORPUSCULAR HEMOGLOBIN 28.9 pg (28.0-32.0); MONOCYTES % 7.4 % (2.0-8.0); NEUTROPHILS % 64.1 % (40.0-76.0); RED BLOOD CELL COUNT 3.44 mill/uL (4.2-5.4); RED CELL DISTRIBUTION WIDTH 19.7 % (11.6-14.6)
[2020-07-19 09:14] LABS: CHLORIDE 103 mEq/L (98-107)
[2020-07-19 09:16] LABS: INR 1.1
[2020-07-19 09:17] LABS: HCG SCREEN NEGATIVE
[2020-07-19 09:52] LABS: MEAN PLATELET VOLUME 8.9 fl (7.4-10.4); PLATELET 67 x1000/uL (130-400)
[2020-07-19] MEDS ORDERED: ONDANSETRON HCL 4MG/2ML INJ IV STA (11:32)
[2020-07-19] MEDS ORDERED: MORPHINE SULFATE 4 MG/ML CPJ (NOT FOR IM USE) IV STA (11:32)
[2020-07-19] MEDS ORDERED: DIPHENHYDRAMINE 50MG/ML VIAL IV PRN (15:45)
[2020-07-19] MEDS ORDERED: CLONIDINE 0.1MG TABLET PO PRN (15:45)
[2020-07-19] MEDS ORDERED: ONDANSETRON HCL 4MG/2ML INJ IV PRN (15:45)
[2020-07-19] MEDS: MORPHINE SULFATE 2 MG/ML CPJ (NOT FOR IM USE) IV PRN (16:02)
[2020-07-19 16:05] LABS: PHOSPHORUS 6.5 mg/dL (2.5-4.9)
[2020-07-19 17:14] VITALS: BP 119/76
[2020-07-19] MEDS ORDERED: LORAZEPAM 2MG/ML CPJ IV PRN (17:30)
[2020-07-19 20:00] VITALS: BP 137/74
[2020-07-19] MEDS: LEVETIRACETAM 500MG TABLET PO SCH (21:22)
[2020-07-20] VITALS: BP 118/58
[2020-07-20 04:00] VITALS: BP 116/66
[2020-07-20 07:41] LABS: CHLORIDE 104 mEq/L (98-107)
[2020-07-20 07:50] LABS: LDL CHOLESTEROL 82 mg/dL (5-100)
[2020-07-20 07:52] LABS: HDL CHOLESTEROL 70 mg/dL (40-59)
[2020-07-20 08:00] VITALS: BP 101/45
[2020-07-20 08:00] LABS: BASOPHILS % 1.7 % (0.0-2.0); HEMATOCRIT. 28.6 % (36.0-48.0); HEMOGLOBIN. 9.3 g/dL (12.0-16.0); LYMPHOCYTES % 37.8 % (20.0-50.0); MEAN CORPUSCULAR HEMOGLOBIN 28.5 pg (28.0-32.0); MEAN CORPUSCULAR VOLUME 87.2 fL (81.0-99.0); MONOCYTES % 7.3 % (2.0-8.0); NEUTROPHILS % 50.2 % (40.0-76.0); RED BLOOD CELL COUNT 3.28 mill/uL (4.2-5.4); RED CELL DISTRIBUTION WIDTH 20.1 % (11.6-14.6)
[2020-07-20] MEDS: MORPHINE SULFATE 2 MG/ML CPJ (NOT FOR IM USE) IV PRN ×2 (08:22→22:49)
[2020-07-20] MEDS: LEVETIRACETAM 500MG TABLET PO SCH ×2 (08:23→22:36)
[2020-07-20] MEDS: LACTULOSE 20G/30ML UDC PO SCH (08:23)
[2020-07-20] MEDS ORDERED: LIDOCAINE HCL 1% 20ML VIAL (Pyxis) INJ ONE (10:32)
[2020-07-20] MEDS ORDERED: SODIUM BICARBONATE 4% (2.4MEQ) 5ML VIAL IV ONE (10:33)
[2020-07-20 12:00] VITALS: BP 105/52
[2020-07-20 13:04] LABS: MEAN PLATELET VOLUME 8.8 fl (7.4-10.4); PLATELET 54 x1000/uL (130-400)
[2020-07-20 16:00] VITALS: BP 111/54
[2020-07-20] MEDS: SEVELAMER CARBONATE 800 MG TABLET PO SCH (16:51)
[2020-07-20] MEDS: CALCIUM ACETATE 667MG CAPSULE PO SCH (16:52)
[2020-07-20 20:00] VITALS: BP 128/70
[2020-07-20] MEDS: PROPRANOLOL HCL 10MG TABLET PO SCH (22:35)
[2020-07-20] MEDS: ACETAMINOPHEN 325MG TABLET PO PRN ×2 (22:36→23:33)
[2020-07-21] VITALS: BP 113/51
[2020-07-21 04:00] VITALS: BP 127/76
[2020-07-21 07:30] LABS: BASOPHILS % 0.5 % (0.0-2.0); EOSINOPHILS % 2.3 % (0.0-5.0); HEMATOCRIT. 30.5 % (36.0-48.0); HEMOGLOBIN. 10.1 g/dL (12.0-16.0); LYMPHOCYTES % 28.7 % (20.0-50.0); MEAN CORPUSCULAR HEMOGLOBIN 28.5 pg (28.0-32.0); MEAN PLATELET VOLUME 8.7 fl (7.4-10.4); MONOCYTES % 7.9 % (2.0-8.0); NEUTROPHILS % 60.6 % (40.0-76.0); PLATELET 66 x1000/uL (130-400); RED BLOOD CELL COUNT 3.54 mill/uL (4.2-5.4); RED CELL DISTRIBUTION WIDTH 19.9 % (11.6-14.6)
[2020-07-21 08:27] VITALS: BP 140/68
[2020-07-21] MEDS: CALCIUM ACETATE 667MG CAPSULE PO SCH (08:37)
[2020-07-21] MEDS: LEVETIRACETAM 500MG TABLET PO SCH (08:37)
[2020-07-21] MEDS: PROPRANOLOL HCL 10MG TABLET PO SCH (08:37)
[2020-07-21] MEDS: SEVELAMER CARBONATE 800 MG TABLET PO SCH (08:38)
[2020-07-21] MEDS: LACTULOSE 20G/30ML UDC PO SCH (08:46)
[2020-07-21] MEDS ORDERED: PROP10TA10 PO (11:48)
[2020-07-21 12:00] VITALS: BP 110/59
[2020-07-21 12:49] VITALS: BP 110/59
== END 2020-07-21 13:20 | disposition home or self-care (01) ==
LOC: ER 07:49 → 8WST 14:23 → EDBEDREQ 14:46 → EDBEDREQTM 14:46 → ENRESERV 15:26 → ER 16:38
PROVIDERS: ADMIT Internal Medicine; ATTEND Internal Medicine
PROC: 0W9G30Z Drainage of Peritoneal Cavity with Drainage Device, Percutaneous Approach (ICD-10-PCS; principal; 2020-07-20)
PROC: 5A1D70Z Performance of Urinary Filtration, Intermittent, Less than 6 Hours Per Day (ICD-10-PCS; 2020-07-20)
DX: K74.3 Primary biliary cirrhosis (principal); R18.8 Other ascites; N18.6 End stage renal disease; K76.6 Portal hypertension; I12.0 Hypertensive chronic kidney disease with stage 5 chronic kidney disease or end stage renal disease; E83.41 Hypermagnesemia; E83.39 Other disorders of phosphorus metabolism; E44.0 Moderate protein-calorie malnutrition; D61.818 Other pancytopenia; M32.14 Glomerular disease in systemic lupus erythematosus; R74.0 Nonspecific elevation of levels of transaminase and lactic acid dehydrogenase [LDH]; D64.9 Anemia, unspecified; R56.9 Unspecified convulsions; Z99.2 Dependence on renal dialysis; Z79.899 Other long term (current) drug therapy; Z76.82 Awaiting organ transplant status; Z68.22 Body mass index [BMI] 22.0-22.9, adult; Z94.0 Kidney transplant status
CPT/HCPCS: 36415; 49083; 71045; 74176; 80048; 80053; 80061; 80076; 82140; 83735; 84100; 84443; 84703; 85025; 93005; 93970; 99285; J1885; J2270; J2405; J3490

== ENCOUNTER 2020-08-07 04:57 | Inpatient (IN) | payer MEDICAID, OTHER ==
[~2020-08-07] VITALS: Ht 162.6 cm; Wt 62.1 kg
[~2020-08-07 04:57] MED LIST changes: +PROP10TA10 PO
[2020-08-07] MEDS ORDERED: MORPHINE SULFATE 4 MG/ML CPJ (NOT FOR IM USE) IV STA (06:42)
[2020-08-07] MEDS ORDERED: FAMOTIDINE 20MG/2ML VIAL IV STA (06:42)
[2020-08-07] MEDS ORDERED: ONDANSETRON HCL 4MG/2ML INJ IV STA (06:42)
[2020-08-07 07:29] LABS: CHLORIDE 99 mEq/L (98-107); INR 1.1; PROTHROMBIN TIME 11.5 sec (9.6-11.0)
[2020-08-07 07:33] LABS: BASOPHILS % 0.9 % (0.0-2.0); EOSINOPHILS % 1.3 % (0.0-5.0); HEMATOCRIT. 31.1 % (36.0-48.0); HEMOGLOBIN. 10.4 g/dL (12.0-16.0); LYMPHOCYTES % 26.7 % (20.0-50.0); MEAN CORPUSCULAR HEMOGLOBIN 28.6 pg (28.0-32.0); MEAN PLATELET VOLUME 9.2 fl (7.4-10.4); MONOCYTES % 7.1 % (2.0-8.0); PLATELET 68 x1000/uL (130-400); RED BLOOD CELL COUNT 3.62 mill/uL (4.2-5.4); RED CELL DISTRIBUTION WIDTH 18.7 % (11.6-14.6)
[2020-08-07 07:41] LABS: HCG SCREEN NEGATIVE
[2020-08-07] MEDS ORDERED: ONDANSETRON HCL 4MG/2ML INJ IV ONE (08:30)
[2020-08-07] MEDS ORDERED: DEXTROSE 50% WATER 50ML SYRINGE IV ONE (08:30)
[2020-08-07] MEDS ORDERED: INSULIN REGULAR (HUMULIN R) 300UNITS/3ML IV ONE (08:30)
[2020-08-07] MEDS ORDERED: ALBUTEROL (0.083%) 2.5MG/3ML NEB HHN ONE (08:30)
[2020-08-07] MEDS ORDERED: ACETAMINOPHEN 325MG TABLET PO PRN ×2 (10:30)
[2020-08-07] MEDS ORDERED: LORAZEPAM 0.5MG TABLET PO PRN (10:30)
[2020-08-07] MEDS ORDERED: NITROGLYCERIN 0.4MG TABLET SL SL PRN (10:30)
[2020-08-07] MEDS ORDERED: GUAIFENESIN 200MG/10ML SUGAR FREE UDC PO PRN (10:30)
[2020-08-07] MEDS ORDERED: CLONIDINE 0.1MG TABLET PO PRN (10:30)
[2020-08-07] MEDS ORDERED: DOCUSATE SODIUM 100MG CAPSULE PO PRN (10:30)
[2020-08-07] MEDS ORDERED: IPRATROPIUM/ALBUTEROL 0.5-3(2.5)MG/3ML NEB NEB PRN (10:30)
[2020-08-07] MEDS ORDERED: MAGNESIUM/ALUMINUM HYDROXIDE/SIMETHICONE 30ML UDC PO PRN (10:30)
[2020-08-07 13:41] VITALS: BP 153/89
[2020-08-07] MEDS: ONDANSETRON HCL 4MG/2ML INJ IV PRN ×2 (14:22→21:08)
[2020-08-07] MEDS ORDERED: NALOXONE HCL 0.4 MG/ML 1ML VIAL IV NR (15:15)
[2020-08-07 16:00] VITALS: BP 129/84
[2020-08-07] MEDS: SUCRALFATE 1 G/10 ML UDC PO SCH ×2 (17:35→20:54)
[2020-08-07] MEDS: SEVELAMER CARBONATE 800 MG TABLET PO SCH (17:35)
[2020-08-07] MEDS: LACTULOSE 20G/30ML UDC PO SCH ×3 (17:35→23:51)
[2020-08-07 20:00] VITALS: BP 109/62
[2020-08-07] MEDS: PROPRANOLOL HCL 10MG TABLET PO SCH (20:23)
[2020-08-07] MEDS: FAMOTIDINE 20MG TABLET PO SCH (20:54)
[2020-08-07] MEDS: LEVETIRACETAM 500MG TABLET PO SCH (20:54)
[2020-08-07] MEDS ORDERED: ZOLPIDEM TARTRATE 5MG TABLET PO PRN (21:00)
[2020-08-08] VITALS: BP 147/81
[2020-08-08] MEDS: LACTULOSE 20G/30ML UDC PO SCH ×6 (03:34→23:09)
[2020-08-08 04:00] VITALS: BP 109/68
[2020-08-08] MEDS: DIPHENHYDRAMINE 50MG/ML VIAL IV PRN ×3 (05:09→21:46)
[2020-08-08] MEDS: SUCRALFATE 1 G/10 ML UDC PO SCH ×4 (06:43→20:38)
[2020-08-08] MEDS: SEVELAMER CARBONATE 800 MG TABLET PO SCH ×3 (06:43→17:48)
[2020-08-08 07:20] LABS: BASOPHILS % 0.7 % (0.0-2.0); EOSINOPHILS % 1.9 % (0.0-5.0); HEMATOCRIT. 27.3 % (36.0-48.0); HEMOGLOBIN. 8.9 g/dL (12.0-16.0); LYMPHOCYTES % 23.5 % (20.0-50.0); MEAN CORPUSCULAR HEMOGLOBIN 27.8 pg (28.0-32.0); MEAN CORPUSCULAR VOLUME 84.8 fL (81.0-99.0); MONOCYTES % 9.1 % (2.0-8.0); NEUTROPHILS % 64.8 % (40.0-76.0); RED BLOOD CELL COUNT 3.22 mill/uL (4.2-5.4); RED CELL DISTRIBUTION WIDTH 17.8 % (11.6-14.6)
[2020-08-08 08:00] VITALS: BP 100/58
[2020-08-08] MEDS: LEVETIRACETAM 500MG TABLET PO SCH ×2 (08:56→20:38)
[2020-08-08] MEDS: PROPRANOLOL HCL 10MG TABLET PO SCH ×2 (08:57→20:39)
[2020-08-08 11:51] LABS: PLATELET 76 x1000/uL (130-400)
[2020-08-08 12:00] VITALS: BP 148/92
[2020-08-08 16:00] VITALS: BP 123/70
[2020-08-08 20:00] VITALS: BP 111/64
[2020-08-08] MEDS: FAMOTIDINE 20MG TABLET PO SCH (20:38)
[2020-08-08] MEDS ORDERED: EPOETIN ALFA 4000UNITS/ML VIAL SUBCUT NR (21:00)
[2020-08-09] VITALS: BP 115/63
[2020-08-09] MEDS: LACTULOSE 20G/30ML UDC PO SCH ×4 (03:58→17:41)
[2020-08-09 04:00] VITALS: BP 112/65
[2020-08-09] MEDS: SUCRALFATE 1 G/10 ML UDC PO SCH ×3 (06:37→17:41)
[2020-08-09] MEDS: SEVELAMER CARBONATE 800 MG TABLET PO SCH ×3 (06:37→17:41)
[2020-08-09 08:00] VITALS: BP 107/49
[2020-08-09] MEDS: PROPRANOLOL HCL 10MG TABLET PO SCH (08:38)
[2020-08-09] MEDS: LEVETIRACETAM 500MG TABLET PO SCH (08:38)
[2020-08-09 12:00] VITALS: BP 116/64
[2020-08-09 12:25] VITALS: BP 126/71
[2020-08-09] MEDS: DIPHENHYDRAMINE 50MG/ML VIAL IV PRN (15:17)
[2020-08-09 16:00] VITALS: BP 126/71
== END 2020-08-09 18:25 | disposition home or self-care (01) | DRG 282 ==
LOC: ER 05:10 → 8WST 09:50 → EDBEDREQ 09:56 → EDBEDREQTM 09:56 → ENRESERV 10:48
PROVIDERS: ADMIT Internal Medicine; ATTEND Internal Medicine
PROC: 5A1D70Z Performance of Urinary Filtration, Intermittent, Less than 6 Hours Per Day (ICD-10-PCS; principal; 2020-08-07)
PROC: 5A1D70Z Performance of Urinary Filtration, Intermittent, Less than 6 Hours Per Day (ICD-10-PCS; 2020-08-09)
DX: K85.90 Acute pancreatitis without necrosis or infection, unspecified (principal); E87.5 Hyperkalemia; K74.60 Unspecified cirrhosis of liver; I12.0 Hypertensive chronic kidney disease with stage 5 chronic kidney disease or end stage renal disease; E87.1 Hypo-osmolality and hyponatremia; D63.8 Anemia in other chronic diseases classified elsewhere; N18.6 End stage renal disease; E44.0 Moderate protein-calorie malnutrition; K74.3 Primary biliary cirrhosis; M32.9 Systemic lupus erythematosus, unspecified; R74.0 Nonspecific elevation of levels of transaminase and lactic acid dehydrogenase [LDH]; Z99.2 Dependence on renal dialysis; K76.9 Liver disease, unspecified; G40.909 Epilepsy, unspecified, not intractable, without status epilepticus; K29.70 Gastritis, unspecified, without bleeding
CPT/HCPCS: 36415; 74176; 80048; 80053; 82140; 82962; 83036; 84703; 85025; 93005; 93970; 94640; 96374; 97161; 97165; 99291; J0885; J1200; J1815; J2270; J2310; J2405; J3490

== ENCOUNTER 2021-02-14 09:51 | Inpatient (IN) | payer MEDICAID ==
[~2021-02-14] VITALS: Ht 165.1 cm; Wt 72.6 kg
[~2021-02-14 09:51] MED LIST changes: -LACT10SO MT; +LACT10SO3 MT
[2021-02-14] MEDS ORDERED: ONDANSETRON HCL 4MG/2ML INJ IV ONE (10:15)
[2021-02-14 10:38] LABS: BASOPHILS % 1.2 % (0.0-2.0); HEMATOCRIT. 31.8 % (36.0-48.0); HEMOGLOBIN. 10.4 g/dL (12.0-16.0); LYMPHOCYTES % 17.1 % (20.0-50.0); MEAN CORPUSCULAR HEMOGLOBIN 29.9 pg (28.0-32.0); MEAN CORPUSCULAR VOLUME 91.1 fL (81.0-99.0); MONOCYTES % 6.3 % (2.0-8.0); NEUTROPHILS % 74.4 % (40.0-76.0); RED CELL DISTRIBUTION WIDTH 21.7 % (11.6-14.6)
[2021-02-14 10:48] LABS: CHLORIDE 101 mEq/L (98-107)
[2021-02-14 11:31] LABS: PLATELET 58 x1000/uL (130-400)
[2021-02-14] MEDS ORDERED: FUROSEMIDE 100MG/10ML VIAL IV NR (11:32)
[2021-02-14] MEDS ORDERED: ONDANSETRON HCL 4MG/2ML INJ IV NR (11:45)
[2021-02-14] MEDS ORDERED: INSULIN REGULAR (HUMULIN R) 300UNITS/3ML VIAL IV NR (11:45)
[2021-02-14] MEDS ORDERED: DEXTROSE 50% WATER 50ML SYRINGE IV NR (11:45)
[2021-02-14] MEDS ORDERED: CALCIUM GLUCONATE 1GM PREMIX 50 ML IV NR (11:45)
[2021-02-14] MEDS ORDERED: SODIUM POLYSTYRENE SULFONATE 15 G/60 ML BOT PO NR (11:45)
[2021-02-14] MEDS ORDERED: HYDROCODONE/ACETAMINOPHEN 5/325MG TABLET PO PRN (13:00)
[2021-02-14] MEDS ORDERED: ONDANSETRON HCL 4MG/2ML INJ IV PRN (13:00)
[2021-02-14 16:00] VITALS: BP 156/78
[2021-02-14 16:11] VITALS: BP 156/78
[2021-02-14 20:00] VITALS: BP 118/61
[2021-02-14] MEDS: LEVETIRACETAM 500MG TABLET PO SCH (20:56)
[2021-02-14] MEDS ORDERED: DIPHENHYDRAMINE 25MG CAPSULE PO PRN (23:45)
[2021-02-15] VITALS: BP 116/63
[2021-02-15 04:00] VITALS: BP 94/50
[2021-02-15 06:39] LABS: BASOPHILS % 1.4 % (0.0-2.0); EOSINOPHILS % 1.3 % (0.0-5.0); HEMATOCRIT. 27.5 % (36.0-48.0); HEMOGLOBIN. 9.2 g/dL (12.0-16.0); LYMPHOCYTES % 21.5 % (20.0-50.0); MEAN CORPUSCULAR HEMOGLOBIN 30.2 pg (28.0-32.0); MEAN CORPUSCULAR VOLUME 90.2 fL (81.0-99.0); MONOCYTES % 7.1 % (2.0-8.0); NEUTROPHILS % 68.7 % (40.0-76.0); RED BLOOD CELL COUNT 3.05 mill/uL (4.2-5.4); RED CELL DISTRIBUTION WIDTH 21.3 % (11.6-14.6)
[2021-02-15 08:00] VITALS: BP 100/56
[2021-02-15] MEDS: CALCIUM ACETATE 667MG CAPSULE PO SCH ×2 (08:29→13:09)
[2021-02-15] MEDS: LEVETIRACETAM 500MG TABLET PO SCH (08:29)
[2021-02-15] MEDS ORDERED: LACTULOSE 20G/30ML UDC PO SCH (09:00)
[2021-02-15 09:01] LABS: MEAN PLATELET VOLUME 10.1 fl (7.4-10.4); PLATELET 58 x1000/uL (130-400)
[2021-02-15 11:56] VITALS: BP 98/57
[2021-02-15 15:52] VITALS: BP 100/55
[2021-02-15 16:12] VITALS: BP 101/56
== END 2021-02-15 17:30 | disposition home or self-care (01) | DRG 422 ==
LOC: ER 09:51 → EDBEDREQ 12:07 → EDBEDREQTM 12:07 → ENRESERV 14:08 → 6WST 17:54
PROVIDERS: ADMIT Internal Medicine; ATTEND Internal Medicine
PROC: 5A1D70Z Performance of Urinary Filtration, Intermittent, Less than 6 Hours Per Day (ICD-10-PCS; principal; 2021-02-14)
PROC: 5A1D70Z Performance of Urinary Filtration, Intermittent, Less than 6 Hours Per Day (ICD-10-PCS; 2021-02-15)
DX: E87.5 Hyperkalemia (principal); M32.14 Glomerular disease in systemic lupus erythematosus; D64.9 Anemia, unspecified; D69.6 Thrombocytopenia, unspecified; E44.0 Moderate protein-calorie malnutrition; E86.9 Volume depletion, unspecified; E87.1 Hypo-osmolality and hyponatremia; G40.909 Epilepsy, unspecified, not intractable, without status epilepticus; I12.0 Hypertensive chronic kidney disease with stage 5 chronic kidney disease or end stage renal disease; K74.3 Primary biliary cirrhosis; N18.6 End stage renal disease; R18.8 Other ascites; I95.9 Hypotension, unspecified; A04.72 Enterocolitis due to Clostridium difficile, not specified as recurrent; Z82.49 Family history of ischemic heart disease and other diseases of the circulatory system; Z99.2 Dependence on renal dialysis; Z79.899 Other long term (current) drug therapy; Z68.26 Body mass index [BMI] 26.0-26.9, adult
CPT/HCPCS: 36415; 71045; 76705; 80048; 80053; 82962; 83880; 84484; 85025; 93005; 99291; J0610; J1815; J1940; J2405; Q0163

== ENCOUNTER 2021-02-16 22:01 | Inpatient (IN) | payer MEDICAID ==
[~2021-02-16] VITALS: Ht 162.6 cm; Wt 61.3 kg
[~2021-02-16 22:01] MED LIST changes: -P20 MT
[2021-02-17] MEDS ORDERED: ONDANSETRON HCL 4MG/2ML INJ IV STA ×2 (00:41→04:38)
[2021-02-17] MEDS ORDERED: MORPHINE SULFATE 4 MG/ML CPJ (NOT FOR IM USE) IV STA ×2 (00:41→04:38)
[2021-02-17] MEDS ORDERED: SODIUM CHLORIDE 0.9% 1,000 ML IV ONE (00:45)
[2021-02-17 01:09] LABS: HEMATOCRIT. 35.7 % (36.0-48.0); HEMOGLOBIN. 11.6 g/dL (12.0-16.0); MEAN CORPUSCULAR HEMOGLOBIN 29.6 pg (28.0-32.0); MEAN CORPUSCULAR VOLUME 90.9 fL (81.0-99.0); RED BLOOD CELL COUNT 3.92 mill/uL (4.2-5.4)
[2021-02-17 01:12] LABS: CHLORIDE 98 mEq/L (98-107)
[2021-02-17 01:50] LABS: HCG SCREEN NEGATIVE
[2021-02-17] MEDS ORDERED: METRONIDAZOLE 500 MG PREMIX 100 ML IV SCH (06:45)
[2021-02-17] MEDS ORDERED: CEFEPIME HCL 1000MG/VIAL INJ IM ONE (06:45)
[2021-02-17] MEDS ORDERED: CEFEPIME 1,000 MG in DEXTROSE 5% WATER 50 ML IV SCH (07:00)
[2021-02-17 07:35] LABS: PLATELET 52 x1000/uL (130-400)
[2021-02-17 07:36] LABS: MEAN PLATELET VOLUME 8.6 fl (7.4-10.4)
[2021-02-17 07:40] LABS: PLATELET ESTIMATE DECREASED
[2021-02-17] MEDS: ONDANSETRON HCL 4MG/2ML INJ IV PRN ×2 (08:49→20:07)
[2021-02-17] MEDS: MORPHINE SULFATE 2 MG/ML CPJ (NOT FOR IM USE) IV PRN ×2 (08:50→14:43)
[2021-02-17 11:00] VITALS: BP 92/56
[2021-02-17 12:00] VITALS: BP_SYST 108; BP_SYST 98; BP_DIAS 59; BP_DIAS 65
[2021-02-17] MEDS ORDERED: LORAZEPAM 0.5MG TABLET PO PRN (14:00)
[2021-02-17] MEDS ORDERED: ACETAMINOPHEN 325MG TABLET PO PRN ×2 (14:00)
[2021-02-17] MEDS ORDERED: DOCUSATE SODIUM 100MG CAPSULE PO PRN (14:00)
[2021-02-17] MEDS ORDERED: LEVETIRACETAM 500 MG in SODIUM CHLORIDE 0.9% 100 ML IV SCH (14:00)
[2021-02-17] MEDS ORDERED: HYDROCODONE/ACETAMINOPHEN 5/325MG TABLET PO PRN (14:00)
[2021-02-17] MEDS ORDERED: IPRATROPIUM/ALBUTEROL 0.5-3(2.5)MG/3ML NEB HHN PRN (14:00)
[2021-02-17] MEDS ORDERED: CLONIDINE 0.1MG TABLET PO PRN (14:00)
[2021-02-17] MEDS: SODIUM CHLORIDE 0.9% 1,000 ML IV SCH (14:59)
[2021-02-17] MEDS: PANTOPRAZOLE SODIUM 40 MG/VIAL IV SCH (14:59)
[2021-02-17] MEDS: LEVETIRACETAM 500MG PREMIX 100 ML IV SCH ×2 (15:00→21:35)
[2021-02-17] MEDS: METOCLOPRAMIDE HCL 10MG/2ML VIAL IV PRN ×2 (15:33→23:37)
[2021-02-17 16:00] VITALS: BP 112/64
[2021-02-17] MEDS ORDERED: LEVOFLOXACIN 500MG PREMIX 100 ML IV NR (17:30)
[2021-02-17] MEDS: METRONIDAZOLE 500 MG PREMIX 100 ML IV SCH (19:00)
[2021-02-17 20:00] VITALS: BP 100/53
[2021-02-17] MEDS: LACTULOSE 20G/30ML UDC PO SCH (21:35)
[2021-02-17] MEDS: PROPRANOLOL HCL 10MG TABLET PO SCH (21:35)
[2021-02-18 00:05] VITALS: BP 105/62
[2021-02-18] MEDS: METRONIDAZOLE 500 MG PREMIX 100 ML IV SCH ×3 (02:49→17:07)
[2021-02-18 04:00] VITALS: BP 109/55
[2021-02-18] MEDS: ONDANSETRON HCL 4MG/2ML INJ IV PRN (05:45)
[2021-02-18 07:11] LABS: HEMOGLOBIN. 10.1 g/dL (12.0-16.0); MEAN PLATELET VOLUME 8.8 fl (7.4-10.4); RED BLOOD CELL COUNT 3.36 mill/uL (4.2-5.4); RED CELL DISTRIBUTION WIDTH 19.5 % (11.6-14.6)
[2021-02-18 08:00] LABS: PLATELET 50 x1000/uL (130-400)
[2021-02-18 08:13] VITALS: BP 138/79
[2021-02-18 08:41] LABS: PHOSPHORUS 6.8 mg/dL (2.5-4.9)
[2021-02-18] MEDS: PROPRANOLOL HCL 10MG TABLET PO SCH ×2 (09:00→20:24)
[2021-02-18] MEDS ORDERED: SODIUM CHLORIDE 0.9% 200 ML IV ONE (09:00)
[2021-02-18 09:53] LABS: PLT FUNCT COLLAGEN/EPINEPHRINE 278 CT(SEC) (76-176)
[2021-02-18 09:54] LABS: PTLFUNC COLLAGEN/ADP 216 CT(SEC) (60-115)
[2021-02-18] MEDS: LEVETIRACETAM 500MG PREMIX 100 ML IV SCH ×2 (10:07→20:24)
[2021-02-18] MEDS: PANTOPRAZOLE SODIUM 40 MG/VIAL IV SCH (10:07)
[2021-02-18 11:43] VITALS: BP 104/44
[2021-02-18] MEDS: SODIUM CHLORIDE 0.9% 1,000 ML IV SCH (13:36)
[2021-02-18] MEDS: MORPHINE SULFATE 2 MG/ML CPJ (NOT FOR IM USE) IV PRN ×2 (13:37→20:20)
[2021-02-18 15:46] VITALS: BP 95/46
[2021-02-18] MEDS: DIPHENHYDRAMINE 50MG/ML VIAL IV PRN ×2 (16:27→21:25)
[2021-02-18] MEDS ORDERED: DIATR MEGLU/DIATRIZOATE SOLN 30ML PO NR (16:30)
[2021-02-18 16:45] LABS: PLATELET ESTIMATE MARKEDLY DECREASED
[2021-02-18 20:00] VITALS: BP 111/50
[2021-02-18] MEDS: LACTULOSE 20G/30ML UDC PO SCH (20:24)
[2021-02-19] VITALS: BP 109/53
[2021-02-19] MEDS: METRONIDAZOLE 500 MG PREMIX 100 ML IV SCH ×3 (01:28→21:10)
[2021-02-19] MEDS: MORPHINE SULFATE 2 MG/ML CPJ (NOT FOR IM USE) IV PRN (03:56)
[2021-02-19] MEDS: DIPHENHYDRAMINE 50MG/ML VIAL IV PRN ×2 (03:56→21:04)
[2021-02-19 04:00] VITALS: BP 106/54
[2021-02-19 05:52] LABS: HEMATOCRIT. 29.8 % (36.0-48.0); HEMOGLOBIN. 9.7 g/dL (12.0-16.0); MEAN CORPUSCULAR HEMOGLOBIN 29.9 pg (28.0-32.0); MEAN CORPUSCULAR VOLUME 92.4 fL (81.0-99.0); RED BLOOD CELL COUNT 3.23 mill/uL (4.2-5.4)
[2021-02-19 06:12] LABS: CHLORIDE 106 mEq/L (98-107)
[2021-02-19 07:43] LABS: MEAN PLATELET VOLUME 9.5 fl (7.4-10.4); PLATELET 56 x1000/uL (130-400); PLATELET ESTIMATE DECREASED
[2021-02-19 08:00] VITALS: BP 105/60
[2021-02-19] MEDS: PROPRANOLOL HCL 10MG TABLET PO SCH ×2 (09:00→21:10)
[2021-02-19] MEDS: PANTOPRAZOLE SODIUM 40 MG/VIAL IV SCH (09:15)
[2021-02-19] MEDS: LEVETIRACETAM 500MG PREMIX 100 ML IV SCH ×2 (09:15→21:09)
[2021-02-19] MEDS ORDERED: DIATR MEGLU/DIATRIZOATE SOLN 30ML PO NR (10:00)
[2021-02-19] MEDS ORDERED: LEVOFLOXACIN 250MG PREMIX 50 ML IV SCH ×2 (11:00→18:00)
[2021-02-19 12:00] VITALS: BP 118/64
[2021-02-19 16:00] VITALS: BP 124/75
[2021-02-19 20:00] VITALS: BP 131/74
[2021-02-19] MEDS: LACTULOSE 20G/30ML UDC PO SCH (21:09)
[2021-02-20] VITALS: BP 134/78
[2021-02-20 04:00] VITALS: BP 119/61
[2021-02-20] MEDS: MORPHINE SULFATE 2 MG/ML CPJ (NOT FOR IM USE) IV PRN (04:04)
[2021-02-20 08:00] VITALS: BP 112/69
[2021-02-20] MEDS: PANTOPRAZOLE SODIUM 40 MG/VIAL IV SCH (08:52)
[2021-02-20] MEDS: LEVETIRACETAM 500MG PREMIX 100 ML IV SCH (08:52)
[2021-02-20] MEDS: PROPRANOLOL HCL 10MG TABLET PO SCH (08:52)
[2021-02-20 09:24] LABS: BASOPHILS % 1.2 % (0.0-2.0); EOSINOPHILS % 2.3 % (0.0-5.0); HEMATOCRIT. 29.7 % (36.0-48.0); HEMOGLOBIN. 9.6 g/dL (12.0-16.0); LYMPHOCYTES % 27.9 % (20.0-50.0); MEAN CORPUSCULAR HEMOGLOBIN 29.4 pg (28.0-32.0); MEAN CORPUSCULAR VOLUME 91.3 fL (81.0-99.0); MEAN PLATELET VOLUME 8.8 fl (7.4-10.4); MONOCYTES % 12.5 % (2.0-8.0); NEUTROPHILS % 56.1 % (40.0-76.0); PLATELET 59 x1000/uL (130-400); RED BLOOD CELL COUNT 3.25 mill/uL (4.2-5.4); RED CELL DISTRIBUTION WIDTH 18.9 % (11.6-14.6)
[2021-02-20] MEDS: METRONIDAZOLE 500 MG PREMIX 100 ML IV SCH (10:26)
[2021-02-20 12:00] VITALS: BP 119/67
[2021-02-20 13:33] VITALS: BP 119/67
== END 2021-02-20 14:19 | disposition home or self-care (01) | DRG 249 ==
LOC: ER 22:01 → 8WST 02-17 03:46 → ENRESERV 02-17 07:24
PROVIDERS: ADMIT Internal Medicine; ATTEND Internal Medicine
DX: K52.9 Noninfective gastroenteritis and colitis, unspecified (principal); K63.1 Perforation of intestine (nontraumatic); D61.818 Other pancytopenia; E44.0 Moderate protein-calorie malnutrition; G40.909 Epilepsy, unspecified, not intractable, without status epilepticus; I12.0 Hypertensive chronic kidney disease with stage 5 chronic kidney disease or end stage renal disease; J44.9 Chronic obstructive pulmonary disease, unspecified; K59.00 Constipation, unspecified; K72.90 Hepatic failure, unspecified without coma; K74.3 Primary biliary cirrhosis; K76.6 Portal hypertension; M32.14 Glomerular disease in systemic lupus erythematosus; N18.6 End stage renal disease; N28.1 Cyst of kidney, acquired; R18.8 Other ascites; K21.9 Gastro-esophageal reflux disease without esophagitis; R16.1 Splenomegaly, not elsewhere classified; D64.9 Anemia, unspecified; K57.90 Diverticulosis of intestine, part unspecified, without perforation or abscess without bleeding; Z76.82 Awaiting organ transplant status; Z82.49 Family history of ischemic heart disease and other diseases of the circulatory system; Z99.2 Dependence on renal dialysis; Z79.899 Other long term (current) drug therapy; Z68.23 Body mass index [BMI] 23.0-23.9, adult; R74.01 Elevation of levels of liver transaminase levels
CPT/HCPCS: 36415; 71045; 74176; 76700; 80048; 80053; 82140; 83735; 84075; 84100; 84450; 84460; 84703; 85025; 85576; 87015; 87045; 87427; 89055; 93005; 99285; C1893; C9113; J0692; J1200; J1953; J1956; J2270; J2405; J2765; J3490; J7030; J7060; Q9963

== ENCOUNTER 2021-09-15 17:29 | Emergency (ER) | payer MEDICAID ==
[~2021-09-15] VITALS: Ht 162.6 cm; Wt 56.8 kg
[~2021-09-15 17:29] MED LIST changes: +HYDR200T35 MT; +SEVE0.8P3 PO
[2021-09-15] MEDS ORDERED: SODIUM CHLORIDE 0.9% 1,000 ML IV ONE (20:00)
[2021-09-15 21:26] LABS: HEMATOCRIT. 24.7 % (36.0-48.0); HEMOGLOBIN. 8.5 g/dL (12.0-16.0); MEAN CORPUSCULAR HEMOGLOBIN 31.1 pg (28.0-32.0); MEAN CORPUSCULAR VOLUME 90.3 fL (81.0-99.0); MEAN PLATELET VOLUME 8.4 fl (7.4-10.4); PLATELET 52 x1000/uL (130-400); RED BLOOD CELL COUNT 2.73 mill/uL (4.2-5.4); RED CELL DISTRIBUTION WIDTH 18.3 % (11.6-14.6)
[2021-09-15 21:29] LABS: CHLORIDE 100 mEq/L (98-107)
[2021-09-15 21:33] LABS: HCG SCREEN NEGATIVE
[2021-09-15] MEDS ORDERED: MORPHINE SULFATE 2 MG/ML CPJ (NOT FOR IM USE) IV NR (22:00)
[2021-09-15 22:24] LABS: PLATELET ESTIMATE MARKEDLY DECREASED
[2021-09-15 23:49] VITALS: BP 125/80
== END 2021-09-16 00:13 | disposition home or self-care (01) ==
LOC: ER 17:29
DX: N93.8 Other specified abnormal uterine and vaginal bleeding (principal); R18.8 Other ascites; D72.819 Decreased white blood cell count, unspecified; D64.9 Anemia, unspecified; K74.60 Unspecified cirrhosis of liver; J44.9 Chronic obstructive pulmonary disease, unspecified; K21.9 Gastro-esophageal reflux disease without esophagitis; Z79.899 Other long term (current) drug therapy
CPT/HCPCS: 36415; 76830; 76856; 80053; 84703; 85025; 86850; 86900; 86901; 96361; 96374; 99284; J2270; J7030